=== PATIENT | female | born 1945 | race Caucasian/White ===

== ENCOUNTER 2022-07-26 07:37 | Inpatient (IN) ==
--- NOTE | 2022-05-21 11:49 | PAT Medication Instructions ---
Medication Instructions Date of Service May 21, 2022 Home Medications Medication Instructions Recorded simvastatin 20 mg tablet 20 mg PO DAILY #30 tabs 11/30/21 simvastatin 20 mg tablet 20 mg PO DAILY calcium-magnesium 750 mg-465 mg tablet 1 tab PO QAM Continue as directed simvastatin 20 mg tablet 20 mg PO DAILY DO NOT take the morning of surgery calcium-magnesium 750 mg-465 mg tablet 1 tab PO QAM Other Notes NOTHING TO EAT OR DRINK AFTER MIDNIGHT. If you have any questions please call us at [phone] or [phone] or [phone] or [phone]
--- NOTE | 2022-05-27 11:35 | Anesthesiology Consultation ---
Date of Service May 27, 2022 Assessment & Plan (1) Encounter for pre-operative examination: - COVID screening: Per assessment on 05/27/2022: Travel screen negative, no known COVID-19 positive contacts or current COVID-19 related symptoms in past 2 weeks. Surgeon arranging preop COVID testing, scheduled 06/15/2022. Awaiting results. Chart Review Chart Review: Acceptable Risk for Surgery and Patient seen in Pre Admission Testing Teaching & Discussion Pre-Anesthesia Teaching/Discussion Notes: Instructed NPO after midnight before surgery, except medications with 15 cc of water. Medication instructions provided according to the PAT guidelines. History Surgery Operation Date: 06/17/22 12:10 Proposed Procedures p Right Reverse Total Shoulder Arthroplasty - Sanchez Garduno MD Height/Weight Height: 5 ft 2 in Weight: 71 kg Allergies Allergy/AdvReac Type Severity Reaction Status Date / Time No Known Allergies Allergy Unverified 12/15/21 13:00 Medications Home Medications Medication Instructions Recorded Confirmed Last Taken simvastatin 20 mg tablet 20 mg PO DAILY #30 tabs 11/30/21 05/21/22 Unknown calcium-magnesium 750 mg-465 mg 1 tab PO QAM 05/21/22 05/21/22 Unknown tablet Past Medical History Medical History (Updated 05/27/22 @ 11:50 by Basia Osborn PA-C) Asymptomatic PVCs denies palpitations, dizziness or lightheadedness Diverticular disease noted on colonoscopy, denies diverticulitis Hyperlipidemia Patient denies h/o stroke, seizures, heart attack, heart failure, DM, HTN, blood clots or blood transfusions. Exercise / Class Metabolic Activity II 4-5 Yardwork/Stairs/Walk up hill (denies CP or SOB with 1 FOS) Past Family History Family History Brother Myocardial infarction Other Diabetes Uterine cancer Denies family history of Ovarian cancer Prostate cancer Breast cancer Colorectal cancer Hypertension Past Surgical History Surgical History H/O eye surgery Blepharectomy History of appendectomy S/P colonoscopy S/P ORIF (open reduction internal fixation) fracture left leg Past Anesthesia History No Hx of Anesthesia Complications and No Family Hx of Anesthesia Complications History of PONV No Hx of PONV and No Hx of Motion Sickness Social History Smoking Status: Never smoker Do You Dip or Chew Tobacco: No Hx Alcohol Use: No Hx Substance Use: No substance use type: does not use Review of Systems Patient denies chest pain, shortness of breath, dyspnea on exertion, snoring, witnessed apneas, reflux, fever, chills, cough, wheezing, or palpitations. Physical Exam Vital Signs Vitals BP 116/73 P 63 TEMP 98.5 SP02 96% on RA RESP 17 Physical Full cervical extension range of motion without pain TMD 3.5 finger breadths Mallampati Score 2 Dentition: full upper and lower dentures Lungs: normal respiratory effort. Clear throughout to auscultation, no adventitious breath sounds Cardiac: regular rate and rhythm, no murmurs noted Carotid arteries: negative bruit bilat Lab Results Anesthesia Preop Results Results Anesthesia Widget: WBC 5.27 K/ul (4.8-10.8) 05/27/22 Hgb 14.0 g/dl (12.0-16.0) 05/27/22 Hct 41.6 % (34.1-44.9) 05/27/22 Plt 160 K/uL (130-400) 05/27/22 Na 137 mmol/L (136-145) 05/27/22 K 3.9 mmol/L (3.5-5.1) 05/27/22 Cl 103 mmol/L (98-107) 05/27/22 CO2 28 mmol/L (21-32) 05/27/22 BUN 11 mg/dl (6-23) 05/27/22 Creat 0.66 mg/dl (0.6-1.2) 05/27/22 Glucose Level 101 mg/dl (70-99(Fasting)) H 05/27/22 PT 11.2 Seconds (9.0-12.0) 05/27/22 PTT 26.3 Seconds (21.0-31.0) 05/27/22 INR 1.1 (0.9-1.1) 05/27/22 HA1c 6.0 % (4.5-5.6) H 05/27/22 Urine Color Yellow 05/27/22 Urine Appearance Clear (Clear) 05/27/22 Urine pH 7.5 (4.5-7.5) 05/27/22 Urine Specific Percy 1.022 (1.000-1.030) 05/27/22 Urine Protein Negative (Negative) 05/27/22 Urine Glucose (UA) Negative (Negative) 05/27/22 Urine Ketones Negative (Negative) 05/27/22 Urine Blood Negative (Negative) 05/27/22 Urine Nitrite Negative (Negative) 05/27/22 Urine Bilirubin Negative (Negative) 05/27/22 Urine Urobilinogen Negative (Negative) 05/27/22 Urine Leukocyte Esterase Trace (Negative) H 05/27/22 Urine WBC (Auto) 5-10 /hpf (0-5) H 05/27/22 Urine RBC (Auto) 0-4 /hpf (0-4) 05/27/22 Urine Hyaline Casts (Auto) 1-5 /lpf (0-5) 05/27/22 Urine Epithelial Cells (Auto) 10-20 /lpf (0-5) H 05/27/22 Urine Bacteria (Auto) Negative (Negative) 05/27/22 Blood Type A Negative 05/27/22 Antibody Screen NEGATIVE 05/27/22 Testing Electrocardiogram Date: 12/15/21 Sinus rhythm with frequent PVCs, rate 71 bpm Chest X-Ray Date: 05/27/22 PA and lateral chest radiographs are compared to study dated 09/27/2018. The cardiomediastinal silhouette is unremarkable noting atherosclerotic calcification of the thoracic aorta. Chronic interstitial thickening is similar to previous. There is bibasilar scarring/atelectasis. The lungs and pleural spaces are otherwise clear. There is no pneumothorax. The skeletal structures are osteopenic. The bony thorax appears intact. Spondylotic change is noted throughout the thoracic spine. IMPRESSION: No active disease in the chest.
--- NOTE | 2022-06-12 21:08 | History & Physical Report ---
Date of Service June 12, 2022 Assessment & Plan (1) Rotator cuff tear arthropathy of right shoulder: Plan: Treatment options discussed with patient. She has failed conservative measures. She would like to proceed with surgical intervention. Risks, benefits and altern atives to surgery including but not limited to infection, DVT, pain, stiffness, need for revision surgery, damage to blood vessels, damage to nerves, PE, , were discussed with the patient and they wish to proceed. Plan on right reverse total shoulder arthroplasty scheduled for [facility] on 06/17/22. All questions answered. F/u post op. History of Present Illness Chief Complaint: Right shoulder pain Primary Care Provider: BRANDEE Hedrick 76 year old female with no significant PMHx presents with ongoing right shoulder pain. Pain interfering with her daily activities. She has failed conservative measures. She would like to proceed with surgical intervention. Patient denies headaches, sweats, fevers, chills, double vision, blurred vision, cough, sore throat, dysphagia, chest pain, sob, wheezing, n/v/d/c, numbness, tingling, fatigue, urinary symptoms, mood disorders. ROS positive for right shoulder pain and stiffness. Allergies Allergy/AdvReac Type Severity Reaction Status Date / Time No Known Allergies Allergy Verified 06/10/22 15:36 Home Medications Medication Instructions Recorded Confirmed Type simvastatin 20 mg tablet 20 mg PO DAILY #30 tabs 11/30/21 06/10/22 Rx calcium-magnesium 750 mg-465 mg 1 tab PO QAM 05/21/22 06/10/22 History tablet Past Med/Surg History Medical History Asymptomatic PVCs Diverticular disease Hyperlipidemia Surgical History H/O eye surgery History of appendectomy S/P colonoscopy S/P ORIF (open reduction internal fixation) fracture Family History Brother Myocardial infarction Other Diabetes Uterine cancer Denies family history of Ovarian cancer Prostate cancer Breast cancer Colorectal cancer Hypertension Social History Smoking Status: Never smoker Second Hand Exposure: No; Do You Dip or Chew Tobacco: No; Tobacco Cessation Education Requested by Patient: No Hx Alcohol Use: No Hx Substance Use: No Preferred Language: P[place]in[place] Communication Ability: Effective Project Administrative Assistant Required: No Beliefs That Will Affect Care: None marital status: Current Living Situation: Family current occupational status: other current occupation: House How many Children do You have: 0 Feels Safe at Home: Yes Childhood Exposure to Second-Hand Smoke: No caffeine: No Dental Care, Regularly: No Physical Activity Frequency: Daily Seatbelt Use: always Sunscreen Use: No Assistive Devices: None, Denture - Upper, Denture - Lower and Glasses Review of Systems All systems reviewed & are unremarkable except as noted in HPI & below Physical Exam Constitutional: well developed and well nourished; no acute distress Eyes: PERRL, conjunctivae normal, anicteric sclerae ENMT: external ear and nose normal, oropharynx normal Neck: trachea midline, no thyromegaly Respiratory: normal respiratory effort, lungs clear to auscultation Cardiovascular: RRR, no murmur, no edema Musculoskeletal: Right shoulder: Tenderness anterolateral acromion. Crepitation with ROM. Positive impingement signs. Active painful ROM. FF active to 50 degrees, abduction to 50 degrees, ER to 5 degrees. Skin: no rashes, warm and dry Neurologic: patellar DTR's 2+ bilat, sensation intact Psychiatric: A+Ox3, euthymic affect Results & Data ([facility]) Diagnostic Findings Right shoulder radiographs demonstrate arthritic changes as well as large subacromial spurring. MRI demonstrates massive full thickness rotator cuff with retraction.
--- NOTE | 2022-07-25 12:48 | History & Physical Report ---
Date of Service July 25, 2022 Assessment & Plan (1) Rotator cuff tear arthropathy of right shoulder: Plan: Treatment options discussed with patient. She has failed conservative measures. She would like to proceed with surgical intervention. Risks, benefits and al ternatives to surgery including but not limited to infection, DVT, pain, stiffness, need for revision surgery, damage to blood vessels, damage to nerves, PE, , were discussed with the patient and they wish to proceed. Plan on right reverse total shoulder arthroplasty scheduled for [facility] on 07/26/22. All questions answered. F/u post op. History of Present Illness Chief Complaint: Right shoulder pain Primary Care Provider: BRANDEE Hedrick 76 year old female with no significant PMHx presents with ongoing right shoulder pain. Pain interfering with her daily activities. She has failed conservative measures. She would like to proceed with surgical intervention. Patient denies headaches, sweats, fevers, chills, double vision, blurred vision, cough, sore throat, dysphagia, chest pain, sob, wheezing, n/v/d/c, numbness, tingling, fatig ue, urinary symptoms, mood disorders. ROS positive for right shoulder pain and stiffness. Allergies Allergy/AdvReac Type Severity Reaction Status Date / Time No Known Allergies Allergy Verified 07/22/22 15:11 Home Medications Medication Instructions Recorded Confirmed Type calcium-magnesium 750 mg-465 mg 1 tab PO QAM 05/21/22 07/22/22 History tablet simvastatin 20 mg tablet 20 mg PO HS 07/22/22 07/22/22 History Past Med/Surg History Medical History Asymptomatic PVCs denies palpitations, dizziness or lightheadedness Diverticular disease noted on colonoscopy, denies diverticulitis Hyperlipidemia Surgical History (Updated 07/22/22 @ 15:14 by Lucia Figueroa) H/O eye surgery Blepharoplasty History of appendectomy S/P colonoscopy S/P ORIF (open reduction internal fixation) fracture left leg Family History Brother Myocardial infarction Other Diabetes Uterine cancer Denies family history of Ovarian cancer Prostate cancer Breast cancer Colorectal cancer Hypertension Social History (Reviewed 06/10/22 @ 16:23 by LAUREN Hedrick Smoking Status: Never smoker Second Hand Exposure: No; Do You Dip or Chew Tobacco: No; Tobacco Cessation Education Requested by Patient: No Hx Alcohol Use: No Hx Substance Use: No Preferred Language: Emir[place] Communication Ability: Effective Ballaster Required: No Beliefs That Will Affect Care: None marital status: Current Living Situation: Family current occupational status: other current occupation: House How many Children do You have: 0 Other Information That Helps Us Care for You: No Feels Safe at Home: Yes Safety Concerns: Feels Safe At This Time Childhood Exposure to Second-Hand Smoke: No caffeine: No Dental Care, Regularly: No Physical Activity Frequency: Daily Seatbelt Use: always Sunscreen Use: No Assistive Devices: Denture - Upper, Denture - Lower and Glasses Physical Exam Constitutional: well developed and well nourished; no acute distress Eyes: PERRL, conjunctivae normal, anicteric sclerae ENMT: external ear and nose normal, oropharynx normal Neck: trachea midline, no thyromegaly Respiratory: normal respiratory effort, lungs clear to auscultation Cardiovascular: RRR, no murmur, no edema Musculoskeletal: Right shoulder: Tenderness anterolateral acromion. Crepitation with ROM. Positive impingement signs. Active painful ROM. FF active to 50 degrees, abduction to 50 degrees, ER to 5 degrees. Skin: no rashes, warm and dry Neurologic: patellar DTR's 2+ bilat, sensation intact Psychiatric: A+Ox3, euthymic affect Results & Data ([place]) Diagnostic Findings Right shoulder radiographs demonstrate arthritic changes as well as large subacromial spurring. MRI demonstrates massive full thickness rotator cuff with retraction.
[~2022-07-26 07:37] MED LIST: ACETAMINOPHEN 500 MG TAB PO SCH; BUPIVACAINE 0.5 % 5 MG/1 ML MPF 30ML VIAL ONE; BUPIVACAINE 0.5 % 5 MG/1 ML PF 10ML VIAL ONE; CeleBREX 200 MG CAP PO SCH; FAMOTIDINE 20 MG TAB PO SCH; GABAPENTIN 300 MG CAP PO SCH; LR 15ML/HR IV SCH; METOCLOPRAMIDE HCL 10 MG TABLET PO SCH; TRANEXAMIC ACID 1,000 MG **IV Intra-op IV SCH; TRANEXAMIC ACID 1,000 MG **IV Pre-op IV SCH; ceFAZolin 1000MG 1,000 MG/7.5 ML SYR IV SCH; dexAMETHasone 4 MG TAB PO SCH
--- NOTE | 2022-07-26 07:50 | History & Physical Bridge Note ---
Date of Service July 26, 2022 History & Physical Bridge Note I have examined the patient, reviewed the History & Physical and in the interval since the performance of the History & Physical I have noted the following changes of clinical significance: no changes noted
[2022-07-26] MEDS ORDERED: ONDANSETRON INJ 2 MG/ML 2 ML VIAL ONE (07:54)
[2022-07-26] MEDS ORDERED: ROCURONIUM BROMIDE 10 MG/ML 5 ML VIAL IV ONE (07:54)
[2022-07-26] MEDS ORDERED: MIDAZOLAM HCL 1 MG/ML 2ML VIAL ONE (07:54)
[2022-07-26] MEDS ORDERED: NEOSTIGMINE METHYLSULFATE 1 MG/ML 10ML VIAL ONE (07:54)
[2022-07-26] MEDS ORDERED: LIDOCAINE 2% MPF LOCAL 5 ML VIAL INFIL ONE (07:54)
[2022-07-26] MEDS ORDERED: GLYCOPYRROLATE 0.2 MG/ML VIAL ONE (07:54)
[2022-07-26] MEDS ORDERED: PROPOFOL IV EMULSION 10 MG/ML 20 ML VIAL IV ONE (07:54)
[2022-07-26] MEDS ORDERED: fentaNYL citrate 100 MCG/2 ML VIAL ONE (07:54)
[2022-07-26] MEDS ORDERED: ePHEDrine sulfate 50 MG/ML AMP IV PRN (09:11)
[2022-07-26] MEDS ORDERED: ATROPINE SULFATE 0.1 MG/ML 10ML SYR IV PRN (09:11)
[2022-07-26] MEDS ORDERED: HYDROmorphone INJ 2 MG/ML SYR/VIAL IV PRN (09:11)
[2022-07-26] MEDS ORDERED: fentaNYL citrate 100 MCG/2 ML VIAL IV PRN (09:11)
[2022-07-26] MEDS ORDERED: ONDANSETRON INJ 2 MG/ML 2 ML VIAL IV PRN ×2 (09:11→14:41)
--- NOTE | 2022-07-26 13:01 | Post Operative Brief Note ---
Immediate Post Op Note v1 Date of Surgery July 26, 2022 Pre & Post Diagnosis Operation Date: 06/17/22 14:30 <No data on this case meets the specified criteria> Operation Date: 07/26/22 09:45 Pre-Op Diagnosis: Right Shoulder Rotator Cuff Arthropathy, chronic irreparable rotator cuff tear Post-Op Diagnosis: Right Shoulder Rotator Cuff Arthropathy, chronic irreparable rotator cuff tear, biceps rupture long head, subacromial impingement. I identified the patient and participated in the time-out.: Yes Procedure Operation Date: 06/17/22 14:30 <No data on this case meets the specified criteria> Operation Date: 07/26/22 09:45 Actual Procedures p Right Reverse Total Shoulder Arthroplasty--Uncemented(Right), excision subacromial spurs and debridement CA ligament.- Sanchez Garduno MD Surgeon Sanchez Garduno MD Cardroom Drawing Runner Newton DAVEY Estimated Blood Loss 50 Findings Consistent with Post-Op Diagnosis Specimens Humeral head cut Drains Hemovac Drain Anesthesia Type General Regional Complications none Disposition Accompanied Patient To Recovery: No Overlapping Procedure I was present for: the critical portions of procedure.
--- NOTE | 2022-07-26 14:07 | XRay Report ---
RIGHT SHOULDER 2 VIEWS CLINICAL HISTORY: Postoperative examination. FINDINGS: 2 portable views of the right shoulder are presented. The skeletal structures are osteopeni c. A right shoulder arthroplasty is in near anatomic alignment. No acute fracture is seen. Productive degenerative change is noted at the acromioclavicular joint. Skin clips, a surgical drain, subcutane ous gas, and soft tissue swelling overlying the right shoulder are expected postoperative findings. T he right lung parenchyma appears clear noting bibasilar atelectasis. IMPRESSION: Expected postoperative findings status post right shoulder arthroplasty. No acute fractur e is seen. Electronically signed by: Shaka Tinajero M.D. 07/26/2022 2:05 PM
--- NOTE | 2022-07-26 14:17 | Anesthesiology Progress Note ---
Date of Service July 26, 2022 Anesthesia Post Procedure Vital Signs Vital Signs: Temp Pulse Pulse Resp BP Pulse Ox O2 Del Method 07/26/22 14:15 80 16 104/59 L 96 Oxymask 07/26/22 14:05 36.1 C L 77 16 107/63 97 Oxymask 07/26/22 13:55 80 16 105/66 97 Oxymask 07/26/22 13:45 36.0 C L 85 18 113/65 97 Oxymask 07/26/22 13:35 85 18 113/56 L 98 Oxymask 07/26/22 13:25 88 16 112/66 97 Oxymask 07/26/22 13:19 36.0 C L 95 H 16 115/63 97 Oxymask 07/26/22 08:01 36.9 C 70 16 111/69 95 Room Air O2 Flow Rate 07/26/22 14:15 3 07/26/22 14:05 3 07/26/22 13:55 3 07/26/22 13:45 3 07/26/22 13:35 3 07/26/22 13:25 3 07/26/22 13:19 3 07/26/22 08:01 Transfer of Care Handoff Completed per policy Notes Mental Status: alert / awake / arousable and participated in evaluation Patient Amnestic to Procedure: Yes Nausea / Vomiting: adequately controlled Pain: adequately controlled Airway Patency, RR, SpO2: stable & adequate BP & HR: stable & adequate Hydration State: stable & adequate Anesthetic Complications: no major complications apparent and Pt Satisfied with anesthetic care
[2022-07-26] MEDS ORDERED: HYDROmorphone INJ 0.5 MG/0.5 ML SYR IV PRN (14:41)
[2022-07-26] MEDS ORDERED: bisacodyL 10 MG SUPP PR PRN (14:41)
[2022-07-26] MEDS ORDERED: METOCLOPRAMIDE HCL INJ 5 MG/ML 2 ML VIAL IV PRN (14:41)
[2022-07-26] MEDS ORDERED: MAGNESIUM HYDROXIDE SUSP 30 ML UDC PO PRN (14:41)
[2022-07-26] MEDS ORDERED: oxyCODONE HCL IR 5 MG TAB (IMMEDIATE RELEASE) PO PRN (14:41)
[2022-07-26] MEDS ORDERED: NALOXONE HCL 0.4 MG/1 ML VIAL/CARP IV PRN (14:41)
--- NOTE | 2022-07-26 16:50 | Operative Report ---
Post Operative Report Pre & Post Diagnosis Operation Date: 06/17/22 14:30 <No data on this case meets the specified criteria> Operation Date: 07/26/22 09:45 Pre-Op Diagnosis: Right Shoulder Rotator Cuff Arthropathy, irreparable rotator cuff tear, chronic long head biceps rupture Post-Op Diagnosis: Right Shoulder Rotator Cuff Arthropathy, irreparable rotator cuff tear, chronic long head biceps rupture and subacromial impingement I identified the patient and participated in the time-out.: Yes Procedure Operation Date: 06/17/22 14:30 <No data on this case meets the specified criteria> Operation Date: 07/26/22 09:45 Actual Procedures p Right Reverse Total Shoulder Arthroplasty--Uncemented(Right), debridement subacromial bone spurs and coracoacromial ligament.- Sanchez Garduno MD Surgeon Sanchez Garduno MD [employer] Picking Supervisor Newton DAVEY Estimated Blood Loss 50 Findings Consistent with Post-Op Diagnosis Specimens Humeral head cut Drains 2 Hemovac Anesthesia Type General Regional Complications none Disposition Disposition: Recovery Room Indications 76-year female with chronic right shoulder pain. Radiographs demonstrate moderate osteoarthritis glenohumeral joint and MRI demonstrates a large retracted rotator cuff tear supraspinatus and infraspinatus retracted back to the level of the glenoid with marked tendinopathy of the rotator cuff. Tendinopathy or possible ruptured biceps tendon. Rotator cuff is felt to be irreparable. Description of Procedure The patient was taken to the operating room and anesthetized under regional block and general anesthetic. The patient was positioned on the operating table in a 30 beach chair position with a towel roll under the medial border of the right scapula. The arm was draped free to be able to manipulate the shoulder as needed. The right upper extremity was prepped and draped in usual sterile fashion. Exam demonstrated 135 degrees forward flexion 90 degrees abduction and and 20 degrees external rotation. An anterior deltopectoral approach was performed. A longitudinal incision was made in the deltopectoral interval. The skin was incised sharply. Subcutaneous flaps were elevated off the fascia. The cephalic vein was dissected out and retracted lateral with the deltoid. The clavipectoral fascia was divided at the lateral margin of the conjoined tendon and extended up to the CA ligament. The following findings were noted patient bursitis over the subscapularis extending into the subacromial space which was thickened and chronic. Intra-articular biceps was ruptured and there was some vestigial biceps tendon that retracted down to level of the pectoralis and there was thin biceps tendon still there at the pectoralis area. The rotator cuff supraspinatus and anterior infraspinatus tendons were torn and retracted. There is teres minor and small portion of intact infraspinatus tendon remaining only. There was spurring of the undersurface of the acromion and lateral acromion with fraying of the undersurface of the CA ligament. The upper centimeter of the pectoralis was released for inferior exposure. A self-retaining retractor was placed. the biceps tendon sheath proximally was resected and the small biceps tendon was tenodesed to the pectoralis tendon with #2 FiberWire to help prevent any further retraction. The subscapularis muscle fibers were split longitudinally at the level of the circumflex vessels. The circumflex vessels were identified and tied off with silk ties and divided laterally. A Kitner elevator was used to free up the inferior fibers of the subscapularis off of the capsule. The axillary nerve was identified with a tug test and protected with a blunt Thao retractor between the nerve and the capsule. The subscapularis tendon was then taken down off of the lesser tuberosity subperiosteally, a Vicryl traction suture was placed and a subperiosteal dissection was performed along the neck of the humerus as the arm was gradually externally rotated exposing the humeral head. The humeral head findings demonstrated moderate arthritic changes not [id number] with grade 2- 3 arthritic changes but moderate anterior-inferior posterior inferior osteophytes. retractors were readjusted and the inferior osteophytes were all resected using a rongeur. A Diop elevator was used to assist in releasing the capsule of the neck of the humerus. The capsule was divided with Soto scissors down to the glenoid released off the anterior glenoid and the rotator interval was released to meet the capsular release and a 360 release of the subscapularis was accomplished. A Fukuda retractor was placed into the joint retracting the humeral head posterior. Glenoid findings demonstrated degenerative changes of the labrum absent biceps tendon due to prior rupture and intact articular surface on the glenoid. The labrum and biceps tendon was resected. an anterior-inferior and posterior inferior capsular release were performed with electrocautery and a Diop elevator on bone with the axillary nerve protected inferiorly by the retractor. Attention was then taken to the humeral preparation. The cutting guide was placed into the humeral head. It was positioned at 20 of retroversion. Oscillating saw was used to resect the humeral head giving the cut above the level of the posterior rotator cuff insertion site. The humerus was then prepared for the stem. I used the ascend flex stem from [employer]. The sizing broaches were used followed by trial br oaches up to a size 3B long which had the appropriate fit and fill. The appropriate sized cut protector was placed. The humerus was then retracted posterior to the glenoid. The glenoid was sized for a 36 mm glenoid sphere and a 25 mm baseplate. The guide for the baseplate was positioned in a 10 inferior tilt and the central drill hole was made. The reamer for the 25 baseplate was used. The central drill was widened for the peg. The hydroxyapatite coated Tornier 25 mm aequalis baseplate was impacted into position. The base plate was transfixed with superior and inferior locking screws and anterior and posterior compression screws with stable fixation. The fan reamer was used for the 36 millimeter glenoid sphere. After irrigation the 36 standard glenoid sphere was impacted onto the baseplate and the security screw was tightened. Attention was taken back to the humerus. The cut protector was removed and the +0 high offset humeral tray trial was assembled to the trial stem rotated appropriately to get bony coverage and then screwed in position. A trial reduction was performed. A +6 mm reversed trial insert demonstrated good stability and no shuck. The trials were removed. 3 drill holes are made into the harder bone in the bicipital groove area and 3 #5 FiberWire sutures were placed transosseously. The canal was irrigated with antibiotic solution with bacitracin. The final component was assembled. The final component was 3B long PTC stem assembled to the plus or high offset tray and a 36,+6 mm reversed insert. This was then impacted into the humerus with a tight press-fit. It was reduced to the glenoid sphere. Stability was verified. There appeared to be some impingement in the subacromial space we used a rongeur to debride the bone spurs from the un dersurface back to a smoother surface to improve abduction and and eliminate some of the impingement with rotation of the implant in the abducted position. Some of thickened CA ligament was also debrided where it was frayed just at the acromial attachment. Deltoid attachment was maintained intact. Subscapularis was repaired with the #5 FiberWire sutures using Joe-Librado suture technique. Lateral row soft tissue repair was performed with #2 FiberWire [id number] sutures. The pectoralis was repaired with #2 FiberWire [id number] sutures. The arm was taken through a range of motion which demonstrated on 140 degrees forward flexion 100 degrees abduction and 35 degrees external rotation. The implant was stable through the range of motion tested. The wound was copiously irrigated. 2 Hemovac drains were placed. The deltopectoral interval was closed with [id number] #1 Vicryl sutures. The subcutaneous tissues were closed with 2-0 Vicryl sutures. The skin was closed with enrrique. Sterile dressings were applied and a shoulder immobilizer. Newton DAVEY my physician assistant facility manager acted as first responder throughout the procedure .He performed functions including patient positioning, arm positioning, prepping and draping, soft tissue retraction, instrument management, suture management and performed the subcutaneous and skin closure and will participate in the postoperative care of the patient. I attest to the content of the Intraoperative Record and any orders documented therein. Any exceptions are noted below.
[2022-07-26] MEDS: ACETAMINOPHEN 500 MG TAB PO SCH ×2 (17:35→20:27)
[2022-07-26] MEDS: SODIUM CHLORIDE 0.9% 1000ML 1,000 ML IV SCH (17:50)
[2022-07-26] MEDS: ceFAZolin 2000MG 2,000 MG/15 ML SYR IV SCH (17:51)
--- NOTE | 2022-07-26 18:41 | Hospitalist Consultation ---
Date of Consultation July 26, 2022 Assessment & Plan (1) Rotator cuff tear arthropathy of right shoulder: Rotator cuff tear arthropathy of right shoulder - Right Reverse Total Shoulder Arthroplasty with debridement subacromial bone spurs and coracoacromial ligament on 07/26 - Post-op pain management per primary team with Tylenol 1000mg q8, hydromorphone 0.5mg IV q4 prn, oxycodone 5-10 mg prn - continue with bowel regimen in the setting of opiod use Hyperlipemia - continue simvastatin 20mg Asymptomatic PVCs - Noted on prior EKGs, asymptomatic Diverticulosis - Noted on prior colonoscopy - Chronic and stable Pain management per primary team DVT prophylaxis: SCD PT/ambulation per primary team. Medicine will sign off. (2) Hyperlipidemia: (3) Asymptomatic PVCs: (4) Diverticulosis: Supervising Physician Co-Signing Physician Notes Patient seen and examined, chart reviewed, case discussed with Corine Elder, and I agree with the assessment and plan as above except as otherwise noted Labs and images reviewed Monse is a 76-year-old female with past medical history of diverticulosis who presented for scheduled right shoulder arthroplasty. Doing well postop, no pain. BP 113/69. Mild tachycardia. No history of cardiac disease, respiratory disease. Seen at bedside, sensation soft touch intact in hands and feet without asymmetry. Radial pulses intact and symmetrical. Warm and well-perfused. May continue simvastatin. Asymptomatic PVCs, no acute treatment for this at this time. No other acute medical issues. Medicine will sign off at this time. Please contact us if any concerns/abnormalities develop History of Present Illness Reason for Consultation: Post Operative Management Requesting Physician: Sanchez Garduno MD Attending Physician: Sanchez Garduno MD History of Present Illness 76 year old female with past medical history of diverticulosis, HLD, and asymptomatic PVCs presents for repair of right rotator cuff. Fell on her right shoulder in March 2022, MRI in April showed tear in right rotator cuff and ruptured biceps tendon. She had right reverse total shoulder arthroplasty with debridement of subacromial bone spurs and coracoacromial ligament 07/26. Pt is resting comfortable tonight. No acute complaints. Allergies Allergy/AdvReac Type Severity Reaction Status Date / Time No Known Allergies Allergy Verified 07/26/22 07:57 Home Medications Medication Instructions Recorded Confirmed Type calcium-magnesium 750 mg-465 mg 1 tab PO QAM 05/21/22 07/26/22 History tablet simvastatin 20 mg tablet 20 mg PO HS 07/22/22 07/26/22 History Patient History Medical History Asymptomatic PVCs denies palpitations, dizziness or lightheadedness Diverticular disease noted on colonoscopy, denies diverticulitis Hyperlipidemia Surgical History H/O eye surgery Blepharoplasty History of appendectomy S/P colonoscopy S/P ORIF (open reduction internal fixation) fracture left leg Family History Brother Myocardial infarction Other Diabetes Uterine cancer Denies family history of Ovarian cancer Prostate cancer Breast cancer Colorectal cancer Hypertension Social History Smoking Status: Never smoker Second Hand Exposure: No; Do You Dip or Chew Tobacco: No; Tobacco Cessation Education Requested by Patient: No Hx Alcohol Use: No Hx Substance Use: No Preferred Language: Peruvian Communication Ability: Effective Architecture Technician Required: No Beliefs That Will Affect Care: None marital status: Current Living Situation: Family current occupational status: other current occupation: House How many Children do You have: 0 Other Information That Helps Us Care for You: No Feels Safe at Home: Yes Safety Concerns: Feels Safe At This Time Childhood Exposure to Second-Hand Smoke: No caffeine: No Dental Care, Regularly: No Physical Activity Frequency: Daily Seatbelt Use: always Sunscreen Use: No Assistive Devices: Denture - Upper, Denture - Lower and Glasses Review of Systems Constitutional: no fever and no chills Respiratory: no cough and no dyspnea Cardiovascular: no chest pain, no syncope and no edema Gastrointestinal: no nausea, no vomiting and no constipation Neurologic: no dizziness, no headache(s) and no confusion Physical Exam Physical Exam: Constitutional: well-appearing, no acute distress HEENT: NCAT, no conjunctival injection CV: regular rhythm, no murmur appreciated, extremities well-perfused, no LE edema Resp: CTABL, no wheezes/rales/rhonchi appreciated, no increased work of breathing GI: soft, nondistended, nontender, BS normoactive MSK: no gross deformities appreciated; dressing on right shoulder in place Skin: warm, dry, no rash appreciated Neuro: alert, oriented, no focal neurologic deficit appreciated Results & Data Results & Data ([facility]) Vital Signs (Past 12 Hours) Vital Signs Temp Pulse Pulse Resp BP Pulse Ox O2 Del Method 07/26/22 18:01 37.0 C 101 H 18 113/69 92 Nasal Cannula 07/26/22 17:20 37.0 C 92 H 18 123/75 93 Nasal Cannula 07/26/22 17:36 Nasal Cannula 07/26/22 17:00 80 16 108/55 L 96 Nasal Cannula 07/26/22 16:00 105 H 16 107/46 L 94 Nasal Cannula 07/26/22 15:30 36.3 C L 99 H 16 105/66 95 Nasal Cannula 07/26/22 15:00 100 H 16 104/58 L 96 Oxymask 07/26/22 14:45 87 16 102/55 L 96 Oxymask 07/26/22 14:30 90 16 104/56 L 96 Oxymask 07/26/22 14:15 80 16 104/59 L 96 Oxymask 07/26/22 14:05 36.1 C L 77 16 107/63 97 Oxymask 07/26/22 13:55 80 16 105/66 97 Oxymask 07/26/22 13:45 36.0 C L 85 18 113/65 97 Oxymask 07/26/22 13:35 85 18 113/56 L 98 Oxymask 07/26/22 13:25 88 16 112/66 97 Oxymask 07/26/22 13:19 36.0 C L 95 H 16 115/63 97 Oxymask 07/26/22 08:01 36.9 C 70 16 111/69 95 Room Air O2 Flow Rate 07/26/22 18:01 2 07/26/22 17:20 2 07/26/22 17:36 2 07/26/22 17:00 3 07/26/22 16:00 3 07/26/22 15:30 3 07/26/22 15:00 3 07/26/22 14:45 3 07/26/22 14:30 3 07/26/22 14:15 3 07/26/22 14:05 3 07/26/22 13:55 3 07/26/22 13:45 3 07/26/22 13:35 3 07/26/22 13:25 3 07/26/22 13:19 3 07/26/22 08:01 Resident Activity Tracking Resident Involvement: Resident Care Provided Care Provided: Adult Hospital Medicine
[2022-07-26] MEDS: DOCUSATE SODIUM 100 MG CAP PO SCH (20:26)
[2022-07-26] MEDS ORDERED: SENNA 8.6 MG TAB PO SCH (21:00)
[2022-07-27] MEDS: ceFAZolin 2000MG 2,000 MG/15 ML SYR IV SCH (02:19)
[2022-07-27] MEDS ORDERED: COUGH DROP (SUGAR FREE) LOZ 24 LOZ/1 BOX BUCCAL STA (03:27)
[2022-07-27] MEDS: SODIUM CHLORIDE 0.9% 1000ML 1,000 ML IV SCH (03:37)
[2022-07-27] MEDS: ACETAMINOPHEN 500 MG TAB PO SCH (05:44)
[2022-07-27] MEDS: DOCUSATE SODIUM 100 MG CAP PO SCH (08:11)
[2022-07-27] MEDS ORDERED: MULTIVITAMIN TAB PO SCH (09:00)
[2022-07-27] MEDS ORDERED: NON-FORMULARY MEDICATION (Calcium-Magnesium 750-465 mg Tablet) PO SCH (09:00)
[2022-07-27 09:03] LABS: Basophils # (auto) 0.02 K/uL (0-0.2); Basophils % (auto) 0.2 %; Hematocrit (blood only) 38.1 % (34.1-44.9); Hemoglobin 12.9 g/dl (12.0-16.0); Immature Granulocytes # (auto) 0.04 K/uL (0.00-0.02); Immature Granulocytes % (auto) 0.4 %; Lymphocytes # (auto) 1.45 K/uL (1.2-3.4); Lymphocytes % (auto) 14.5 %; Mean Corpuscular Hgb Conc 33.9 g/dL (32.0-36.0); Mean Corpuscular Volume 91.6 fL (80.0-100.0); Mean Platelet Volume 10.5 fL (9.4-12.3); Monocytes # (auto) 0.82 K/uL (0.24-0.82); Monocytes % (auto) 8.2 %; Neutrophils # (auto) 7.65 K/uL (1.4-6.5); Neutrophils % (auto) 76.7 %; Platelet Count 148 K/uL (130-400); RDW Standard Deviation 43.7 fL (36.4-46.3); Red Blood Count 4.16 M/uL (3.93-5.22); White Blood Count 9.98 K/ul (4.8-10.8)
[2022-07-27 09:39] LABS: BUN Creatinine Ratio 14.9 (10-20); Calcium 9.2 mg/dl (8.5-10.1); Creatinine Clr Calc Pharmacy 65.8 ml/min; Est GFR (African American) 99.7 ml/min; Potassium 3.9 mmol/L (3.5-5.1)
--- NOTE | 2022-07-27 10:09 | Orthopedic Progress Note ---
Date of Service July 27, 2022 Assessment & Plan (1) Rotator cuff tear arthropathy of right shoulder: Plan: Postop day 1 status post right reverse TSA PT/OT protocols. Nonweightbearing right upper extremity DVT prophylaxis-aspirin p.o. daily, SCDs Pain management as written. DC planning-no dedicated physical therapy at this time until seen back in the office for her first postoperative visit. Plan for discharge to home today. Admission and Anticipated Discharge Date Admission Date: July 26, 2022 Subjective Postop day 1 Patient currently going through her physical therapy regimen. Standing at the bedside. No complaints this morning. Pain is controlled. Physical Exam Physical Exam: Dressings are clean, dry, and intact. Patient currently out of her sling secondary to physical therapy exercises. She has good range of motion of her right wrist and fingers. She states that she still has some numbness in the fingers at this time. Results & Data ([facility]) Vital Signs (Past 12 Hours) Vital Signs Temp Pulse Pulse Resp BP Pulse Ox O2 Del Method 07/27/22 07:45 36.9 C 62 16 93/56 L 93 Room Air 07/27/22 03:44 36.5 C 60 16 101/63 93 Room Air 07/27/22 00:55 67 102/61 93 Room Air 07/26/22 23:27 36.8 C 80 18 98/60 L 96 Nasal Cannula O2 Flow Rate 07/27/22 07:45 07/27/22 03:44 07/27/22 00:55 07/26/22 23:27 2 Laboratory Results Laboratory Results WBC 9.98 K/ul (4.8-10.8) 07/27/22 08:24 RBC 4.16 M/uL (3.93-5.22) 07/27/22 08:24 Hgb 12.9 g/dl (12.0-16.0) 07/27/22 08:24 Hct 38.1 % (34.1-44.9) 07/27/22 08:24 MCV 91.6 fL (80.0-100.0) 07/27/22 08:24 MCH 31.0 pg (25.0-34.0) 07/27/22 08:24 MCHC 33.9 g/dL (32.0-36.0) 07/27/22 08:24 RDW Std Deviation 43.7 fL (36.4-46.3) 07/27/22 08:24 RDW Coeff of Magdalena 13.0 % (11.5-14.5) 07/27/22 08:24 Plt Count 148 K/uL (130-400) 07/27/22 08:24 MPV 10.5 fL (9.4-12.3) 07/27/22 08:24 Immature Gran % (Auto) 0.4 % 07/27/22 08:24 Neut % (Auto) 76.7 % 07/27/22 08:24 Lymph % (Auto) 14.5 % 07/27/22 08:24 Barry % (Auto) 8.2 % 07/27/22 08:24 Eos % (Auto) 0.0 % 07/27/22 08:24 Baso % (Auto) 0.2 % 07/27/22 08:24 Neut # (Auto) 7.65 K/uL (1.4-6.5) H 07/27/22 08:24 Lymph # (Auto) 1.45 K/uL (1.2-3.4) 07/27/22 08:24 Barry # (Auto) 0.82 K/uL (0.24-0.82) 07/27/22 08:24 Eos # (Auto) 0.00 K/uL (0-0.50) 07/27/22 08:24 Baso # (Auto) 0.02 K/uL (0-0.2) 07/27/22 08:24 Immature Gran # (Auto) 0.04 K/uL (0.00-0.02) H 07/27/22 08:24 Sodium 138 mmol/L (136-145) 07/27/22 08:24 Potassium 3.9 mmol/L (3.5-5.1) 07/27/22 08:24 Chloride 105 mmol/L (98-107) 07/27/22 08:24 Carbon Dioxide 27 mmol/L (21-32) 07/27/22 08:24 Anion Gap 6 (3-11) 07/27/22 08:24 BUN 10 mg/dl (6-23) 07/27/22 08:24 Creatinine 0.67 mg/dl (0.6-1.2) 07/27/22 08:24 Est Cr Clr Drug Dosing 65.8 ml/min 07/27/22 08:24 Est GFR ( Amer) 99.7 ml/min 07/27/22 08:24 Est GFR (Non-Af Amer) 86.0 ml/min 07/27/22 08:24 BUN/Creatinine Ratio 14.9 (10-20) 07/27/22 08:24 Glucose 97 mg/dl (70-99(Fasting)) 07/27/22 08:24 Calcium 9.2 mg/dl (8.5-10.1) 07/27/22 08:24 SARS-CoV-2, RNA, NAAT NEGATIVE (NEGATIVE) 07/26/22 07:47 Impressions Shoulder X-Ray 07/26/22 13:19 RIGHT SHOULDER 2 VIEWS CLINICAL HISTORY: Postoperative examination. FINDINGS: 2 portable views of the right shoulder are presented. The skeletal structures are osteopenic. A right shoulder arthroplasty is in near anatomic alignment. No acute fracture is seen. Productive degenerative change is noted at the acromioclavicular joint. Skin clips, a surgical drain, subcutaneous gas, and soft tissue swelling overlying the right shoulder are expected postoperative findings. The right lung parenchyma appears clear noting bibasilar atelectasis. IMPRESSION: Expected postoperative findings status post right shoulder arthroplasty. No acute fracture is seen. Electronically signed by: Shaka Tinajero M.D. 07/26/2022 2:05 PM
[2022-07-27] MEDS ORDERED: SIMVASTATIN 20 MG TAB PO SCH (21:00)
--- NOTE | 2022-07-31 18:13 | Discharge Summary ---
Date of Service July 31, 2022 Admission HPI Per Admitting Provider 76 year old female with no significant PMHx presents with ongoing right shoulder pain. Pain interfering with her daily activities. She has failed conservative measures. She would like to proceed with surgical intervention. Patient denies headaches, sweats, fevers, chills, double vision, blurred vision, cough, sore throat, dysphagia, chest pain, sob, wheezing, n/v/d/c, numbness, tingling, fatigue, urinary symptoms, mood disorders. ROS positive for right shoulder pain and stiffness. Admission Exam Per Admitting Provider Constitutional: well developed and well nourished; no acute distress Eyes: PERRL, conjunctivae normal, anicteric sclerae ENMT: external ear and nose normal, oropharynx normal Neck: trachea midline, no thyromegaly Respiratory: normal respiratory effort, lungs clear to auscultation Cardiovascular: RRR, no murmur, no edema Musculoskeletal: Right shoulder: Tenderness anterolateral acromion. C repitation with ROM. Positive impingement signs. Active painful ROM. FF active to 50 degrees, abduction to 50 degrees, ER to 5 degrees. Skin: no rashes, warm and dry A Neurologic: patellar DTR's 2+ bilat, sensation intact Psychiatric: A+Ox3, euthymic affect Principal Diagnosis Right shoulder osteoarthritis Discharge Exam Dressings are clean, dry, and intact. Patient currently out of her sling secondary to physical therapy exercises. She has good range of motion of her right wrist and fingers. She states that she still has some numbness in the fingers at this time. Constitutional well developed and well nourished; no acute distress Discharge Data Allergies Allergy/AdvReac Type Severity Reaction Status Date / Time No Known Allergies Allergy Verified 07/26/22 07:57 Consultations 07/21/22 16:38 Consult Hospitalist Routine Procedures Performed Operation Date: 06/17/22 14:30 <No data on this case meets the specified criteria> Operation Date: 07/26/22 09:45 Actual Procedures p Right Reverse Total Shoulder Arthroplasty--Uncemented(Right) - Sanchez Garduno MD Ordered Studies 06/17/22 05:00 US - OR guided needle placemen Routine 07/26/22 05:00 US - OR guided needle placemen Routine Hospital Course (1) Rotator cuff tear arthropathy of right shoulder: Postop day 1 status post right reverse TSA PT/OT protocols. Nonweightbearing right upper extremity DVT prophylaxis-aspirin p.o. daily, SCDs Pain management as written. DC planning-no dedicated physical therapy at this time until seen back in the office for her first postoperative visit. Plan for discharge to home today. Lab Results 07/26/22 07/27/22 07/27/22 Range/Units 07:47 08:24 08:24 WBC 9.98 (4.8-10.8) K/ul RBC 4.16 (3.93-5.22) M/uL Hgb 12.9 (12.0-16.0) g/dl Hct 38.1 (34.1-44.9) % MCV 91.6 (80.0-100.0) fL MCH 31.0 (25.0-34.0) pg MCHC 33.9 (32.0-36.0) g/dL RDW Std Deviation 43.7 (36.4-46.3) fL RDW Coeff of Magdalena 13.0 (11.5-14.5) % Plt Count 148 (130-400) K/uL MPV 10.5 (9.4-12.3) fL Immature Gran % (Auto) 0.4 % Neut % (Auto) 76.7 % Lymph % (Auto) 14.5 % [place] % (Auto) 8.2 % Eos % (Auto) 0.0 % Baso % (Auto) 0.2 % Neut # (Auto) 7.65 H (1.4-6.5) K/uL Lymph # (Auto) 1.45 (1.2-3.4) K/uL [place] # (Auto) 0.82 (0.24-0.82) K/uL Eos # (Auto) 0.00 (0-0.50) K/uL Baso # (Auto) 0.02 (0-0.2) K/uL Immature Gran # (Auto) 0.04 H (0.00-0.02) K/uL Sodium (136-145) mmol/L Potassium (3.5-5.1) mmol/L Chloride (98-107) mmol/L Carbon Dioxide (21-32) mmol/L Anion Gap (3-11) BUN (6-23) mg/dl Creatinine (0.6-1.2) mg/dl Est Cr Clr Drug Dosing ml/min Est GFR ( Amer) ml/min Est GFR (Non-Af Amer) ml/min BUN/Creatinine Ratio (10-20) Glucose (70-99(Fasting)) mg/dl Calcium (8.5-10.1) mg/dl Hepatitis C Ab (EIA) NON-REACTIVE (NON-REACTIVE) Hep C Ab Signal/Cutoff 0.07 (<1.00) SARS-CoV-2, RNA, NAAT NEGATIVE (NEGATIVE) 07/27/22 Range/Units 08:24 WBC (4.8-10.8) K/ul RBC (3.93-5.22) M/uL Hgb (12.0-16.0) g/dl Hct (34.1-44.9) % MCV (80.0-100.0) fL MCH (25.0-34.0) pg MCHC (32.0-36.0) g/dL RDW Std Deviation (36.4-46.3) fL RDW Coeff of Magdalena (11.5-14.5) % Plt Count (130-400) K/uL MPV (9.4-12.3) fL Immature Gran % (Auto) % Neut % (Auto) % Lymph % (Auto) % [place] % (Auto) % Eos % (Auto) % Baso % (Auto) % Neut # (Auto) (1.4-6.5) K/uL Lymph # (Auto) (1.2-3.4) K/uL [place] # (Auto) (0.24-0.82) K/uL Eos # (Auto) (0-0.50) K/uL Baso # (Auto) (0-0.2) K/uL Immature Gran # (Auto) (0.00-0.02) K/uL Sodium 138 (136-145) mmol/L Potassium 3.9 (3.5-5.1) mmol/L Chloride 105 (98-107) mmol/L Carbon Dioxide 27 (21-32) mmol/L Anion Gap 6 (3-11) BUN 10 (6-23) mg/dl Creatinine 0.67 (0.6-1.2) mg/dl Est Cr Clr Drug Dosing 65.8 ml/min Est GFR ( Amer) 99.7 ml/min Est GFR (Non-Af Amer) 86.0 ml/min BUN/Creatinine Ratio 14.9 (10-20) Glucose 97 (70-99(Fasting)) mg/dl Calcium 9.2 (8.5-10.1) mg/dl Hepatitis C Ab (EIA) (NON-REACTIVE) Hep C Ab Signal/Cutoff (<1.00) SARS-CoV-2, RNA, NAAT (NEGATIVE) Total Time Total Time Spent Total Time Spent (In Minutes): 20 Discharge Plan Discharge Items Patient Disposition: Home - Self-Care Reason For Visit: Unilateral Primary Osteoarthritis Discharge Diagnosis: Osteoarthritis right shoulder Activity: Per Instructions section Weightbearing: Right non-weightbearing Non-emergency contact: Surgeon Call non-emergency contact if: you have any medication questions, your pain is not controlled, your temperature is above 101.5, your wound has increased redness and your wound has increased drainage Follow-up/Referrals: Aliyah Dennis CRNP [Primary Care Provider] - Sanchez Garduno MD [Surgeon] - (Follow-up with Dr. Garduno in 2 weeks from the day of your surgery for your first postoperative visit.) Diet: Regular Addtl Attending Provider Instructions: ACTIVITY RECOMMENDATIONS: SELF CARE INSTRUCTIONS AFTER TOTAL SHOULDER ARTHROPLASTY REVERSE A. You may do daily exercises as taught in physical therapy while in hospital. No lifting with the operative arm. B. You are to wear your sling/immobilizer at all times EXCEPT when performing your daily exercises and for hygiene purposes. C. You may perform dry, daily dressing changes. Please keep your incision covered. You may shower 48 hours after surgery. Do not apply soap or any ointment/lotions directly over incision. Do not soak incision in bath tub/swimming pool. D. You may use ice as needed to operative shoulder. SPECIAL CARE INSTRUCTIONS: VERY IMPORTANT TO READ AND REVIEW A. There are a few signs you need to watch for after you are home. Call [facility] at [phone] if you experience any of the followin. Increased severe shoulder pain. Some pain is expected especially when you exercise. 2. Increased swelling in you shoulder or arm; pain or swelling in either upper extremity. 3. Any fluid drainage from the incision. 4. Shortness of breath or chest pain. B. Please call [facility] at [phone] if you have any questions or concerns about your operation or recovery. C. Call your physician if: 1. Temperature is greater than 101 degrees (F). 2. Pain is not relieved by prescribed pain medications. 3. Increase drainage or redness from incision. 4. Unanswered questions or concerns. FOLLOW UP VISIT: Please call [facility] at [phone] to schedule a follow up appointment with Dr. Garduno or his PA in 12-14 days from your surgery date. Stand-Alone Forms: [facility] [employer], Smoking Cessation Medications and DC Order Prescriptions: New acetaminophen [Tylenol Extra Strength] 500 mg Tablet 1,000 mg PO Q8 14 Days Qty: 84 0RF oxycodone 5 mg tablet 5 mg PO Q4H MDD 6 PRN (Reason: pain) Qty: 30 0RF aspirin [Ecotrin] 325 mg tablet,delayed release (DR/EC) 325 mg PO DAILY 30 Days Qty: 30 0RF Continued calcium-magnesium 750-465 mg Tablet 1 tab PO QAM simvastatin 20 mg tablet 20 mg PO HS Discharge Orders: Discharge Order (Routine); Ordered 07/27/22 Ordered By: Mando Sutton Admission Data Admit Date/Time: 07/26/22 13:19 Attending Provider: Sanchez Garduno Admit Provider: Sanchez Garduno Primary Care Provider: Aliyah Dennis Other Providers: Zach Alexandre Other Interventions: Discharge Summary Assessment (RN) Last Done: 07/27/22 10:34
== END 2022-07-27 13:26 | disposition home or self-care (01) | DRG 483 ==
LOC: ASU 07:37 → PACUINP 13:19 → 3W 17:22